=== PATIENT | male | born 1950 | race Asian ===

== ENCOUNTER → 2022-06-11 | Outpatient (CLI) | payer MEDICARE | END | disposition home or self-care (01) | LOC: RADMN 14:16 | PROVIDERS: ATTEND Family Medicine | DX: R06.02 Shortness of breath (principal); L98.9 Disorder of the skin and subcutaneous tissue, unspecified; M47.814 Spondylosis without myelopathy or radiculopathy, thoracic region | CPT/HCPCS: 71045 ==